=== PATIENT | male | born 1930 | race Caucasian/White ===

== ENCOUNTER 2017-11-30 12:30 | Observation (INO) | payer MEDICARE ==
[2017-11-27 13:13] LABS: BASOPHILS % (AUTO) 0.8 % (0.0-5.0); EOSINOPHILS % (AUTO) 2.7 % (0.0-8.0); HEMATOCRIT 28.5 % (42-54); LYMPHOCYTES % (AUTO) 8.4 % (21.0-51.0); MEAN CORPUSCULAR HEMOGLOBIN 31.3 pg (27.0-33.0); MEAN CORPUSCULAR HGB CONC 34.1 g/dL (32.0-36.0); MEAN CORPUSCULAR VOLUME 91.9 fL (79-99); MONOCYTES % (AUTO) 11.1 % (3.0-13.0); PLATELET COUNT (AUTO) 201 K/uL (130-400); RED CELL DISTRIBUTION WIDTH 14.9 % (11.0-15.5)
[2017-11-27 13:21] VITALS: BP 159/82
[2017-11-27 13:22] LABS: CREATININE 1.1 mg/dL (0.5-1.5); POTASSIUM 4.8 mmol/L (3.5-5.1)
[~2017-11-30] VITALS: Ht 180.3 cm; Wt 64.4 kg
[~2017-11-30 12:30] MED LIST: ACET325T51 PO; APIX2.5T PO; ATOR20TA65 PO; CEFD300C3 PO; DIGO125T87 PO; FURO20TA6 PO; LOSA50TA2 PO; MEGE400O4 PO; METO-391 PO; MOM30 PO; MULT-1296 PO; POLYETHYLENE GLY PO; SPIR25TA6 PO; TAMS0.4C32 PO
[2017-12-03] VITALS (22 sets, daily range): BP systolic 112–158; BP diastolic 58–97
[2017-12-03] MEDS: MEROPENEM 1 GM VIAL IVP SCH ×2 (05:00→10:08)
[2017-12-03] MEDS ORDERED: LACTATED RINGERS 1000ML 1,000 ML IV ONE (09:22)
[2017-12-03] MEDS ORDERED: LIDOCAINE PF 2% 5ML ABBOJECT ONE (09:36)
[2017-12-03] MEDS ORDERED: ONDANSETRON HCL 4 MG/2 ML VIAL ONE (09:36)
[2017-12-03] MEDS ORDERED: PROPOFOL 10 MG/ML 20ML VIAL IV ONE (09:36)
[2017-12-03] MEDS ORDERED: FENTANYL CITRATE PF 50 MCG/1 ML 2ML VIAL ONE ×3 (09:37→11:48)
[2017-12-03] MEDS ORDERED: KETAMINE 50MG/ML SYRINGE 50 MG/ML DISP.SYRIN IV ONE (09:40)
[2017-12-03] MEDS ORDERED: EPHEDRINE SULFATE 50 MG/ML AMPULE ONE (10:21)
[2017-12-03] MEDS ORDERED: LABETALOL HCL 5 MG/ML 20ML VIAL IV ONE (11:43)
[2017-12-03] MEDS ORDERED: MAGNESIUM HYDROXIDE 30 ML/UDCUP PO PRN (14:45)
[2017-12-03] MEDS ORDERED: ONDANSETRON HCL 4 MG/2 ML VIAL IVP PRN (14:45)
[2017-12-03] MEDS ORDERED: MORPHINE SULFATE 5 MG/ML VIAL IV PRN (14:45)
[2017-12-03] MEDS: DIGOXIN 125 MCG TABLET PO SCH ×2 (16:00→18:49)
[2017-12-03] MEDS ORDERED: PROMETHAZINE HCL 25 MG/ML 1ML AMPULE IM PRN (19:15)
[2017-12-03] MEDS: Metoprolol Succinate 50 MG PO SCH (21:00)
[2017-12-03] MEDS: TAMSULOSIN HCL 0.4 MG CAP.ER.24H PO SCH (21:19)
[2017-12-03] MEDS: LOSARTAN 50 MG TABLET PO SCH (21:20)
[2017-12-04] VITALS (7 sets, daily range): BP systolic 122–137; BP diastolic 69–89
[2017-12-04] MEDS: MEROPENEM 1 GM VIAL IVP SCH (05:00)
[2017-12-04 05:21] LABS: HEMATOCRIT 27.4 % (42-54); MEAN CORPUSCULAR HEMOGLOBIN 30.4 pg (27.0-33.0); MEAN CORPUSCULAR HGB CONC 33.5 g/dL (32.0-36.0); MEAN CORPUSCULAR VOLUME 90.7 fL (79-99); PLATELET COUNT (AUTO) 165 K/uL (130-400); RED BLOOD CELL COUNT(AUTO) 3.02 MIL/uL (4.50-6.20); RED CELL DISTRIBUTION WIDTH 15.7 % (11.0-15.5); WHITE BLOOD COUNT (AUTO) 11.5 K/uL (4.8-10.8)
[2017-12-04] MEDS ORDERED: ACETAMINOPHEN 325 MG TAB PO PRN (08:15)
[2017-12-04] MEDS: Metoprolol Succinate 50 MG PO SCH ×2 (09:00→21:00)
[2017-12-04] MEDS: POLYETHYLENE GLYCOL 3350 17 GM POWD.PACK PO SCH (10:42)
[2017-12-04] MEDS: ATORVASTATIN CALCIUM 20 MG TABLET PO SCH (10:42)
[2017-12-04] MEDS: SPIRONOLACTONE 25 MG TAB PO SCH (10:42)
[2017-12-04] MEDS: MULTIVITAMIN TABLET PO SCH (10:43)
[2017-12-04] MEDS: MEGESTROL 400 MG/10 ML UDCUP PO SCH (10:45)
[2017-12-04] MEDS: LOSARTAN 50 MG TABLET PO SCH ×2 (10:45→21:21)
[2017-12-04] MEDS: FUROSEMIDE 20 MG TABLET PO SCH (10:45)
[2017-12-04] MEDS: TAMSULOSIN HCL 0.4 MG CAP.ER.24H PO SCH (21:21)
[2017-12-04] MEDS: KETOROLAC TROMETHAMINE 15MG/ML IV PRN (21:26)
[2017-12-05 04:00] VITALS: BP 131/72
[2017-12-05 06:28] LABS: BASOPHILS % (AUTO) 0.5 % (0.0-5.0); EOSINOPHILS % (AUTO) 3.6 % (0.0-8.0); HEMATOCRIT 23.8 % (42-54); MEAN CORPUSCULAR HEMOGLOBIN 30.8 pg (27.0-33.0); MEAN CORPUSCULAR HGB CONC 34.1 g/dL (32.0-36.0); MEAN CORPUSCULAR VOLUME 90.5 fL (79-99); MONOCYTES % (AUTO) 11.6 % (3.0-13.0); NEUTROPHILS % (AUTO) 75.3 % (40.0-77.0); PLATELET COUNT (AUTO) 174 K/uL (130-400); RED BLOOD CELL COUNT(AUTO) 2.63 MIL/uL (4.50-6.20); RED CELL DISTRIBUTION WIDTH 15.3 % (11.0-15.5); WHITE BLOOD COUNT (AUTO) 10.2 K/uL (4.8-10.8)
[2017-12-05 06:32] LABS: POTASSIUM 4.8 mmol/L (3.5-5.1)
[2017-12-05 07:00] VITALS: BP 129/74
[2017-12-05] MEDS ORDERED: LEVOFLOXACIN 500 MG TABLET PO SCH (09:00)
[2017-12-05] MEDS: Metoprolol Succinate 50 MG PO SCH (09:00)
[2017-12-05] MEDS: MULTIVITAMIN TABLET PO SCH (10:35)
[2017-12-05] MEDS: ATORVASTATIN CALCIUM 20 MG TABLET PO SCH (10:35)
[2017-12-05] MEDS: LOSARTAN 50 MG TABLET PO SCH (10:36)
[2017-12-05] MEDS: MEGESTROL 400 MG/10 ML UDCUP PO SCH (10:36)
[2017-12-05] MEDS: FUROSEMIDE 20 MG TABLET PO SCH (10:36)
[2017-12-05] MEDS: POLYETHYLENE GLYCOL 3350 17 GM POWD.PACK PO SCH (10:36)
[2017-12-05] MEDS: SPIRONOLACTONE 25 MG TAB PO SCH (10:36)
[2017-12-05] MEDS: KETOROLAC TROMETHAMINE 15MG/ML IV PRN (10:53)
[2017-12-05 11:00] VITALS: BP 140/70
[2017-12-05 16:25] VITALS: BP 120/66
== END 2017-12-05 16:24 ==
LOC: DAHIP 12-03 07:29 → 3BH 12-03 13:15
PROVIDERS: ADMIT Surgery; ATTEND Surgery
DX: R31.0 Gross hematuria (principal); C67.9 Malignant neoplasm of bladder, unspecified; N39.0 Urinary tract infection, site not specified; I10 Essential (primary) hypertension; Z86.73 Personal history of transient ischemic attack (TIA), and cerebral infarction without residual deficits; Z90.6 Acquired absence of other parts of urinary tract; Z79.01 Long term (current) use of anticoagulants
CPT/HCPCS: 36415 ×3; 52235; 80048 ×3; 85025 ×2; 85027; 87077; 87088; 87186; 88307; 93005; 96374; 96375 ×2; 96376; 97161; 97530; A4218; A4346; A4354; A4358; A5113; G0378 ×58; G8978; G8979; G8980; G8981; G8982; G8983; J1885 ×2; J2001; J2185; J2270; J2405; J2704; J3010 ×3; J3490 ×3; J7030; J7120